=== PATIENT | female | born 1955 | race Caucasian/White ===

== ENCOUNTER 2017-01-26 08:02 | Emergency (ER) | payer OTHER ==
[~2017-01-26] VITALS: Ht 157.5 cm; Wt 61.7 kg
[2017-01-26] MEDS ORDERED: XANAX0.5 MG PO (09:02)
[2017-01-26] MEDS ORDERED: CULTURELLE1 CAP PO (09:03)
[2017-01-26] MEDS ORDERED: FISH OIL1 GM PO (09:03)
[2017-01-26] MEDS ORDERED: FLONASE16 GM NASBOTH (09:04)
[2017-01-26] MEDS ORDERED: GENICIN500 MG PO (09:04)
[2017-01-26] MEDS ORDERED: INVOKANA100 MG PO (09:05)
[2017-01-26] MEDS ORDERED: ATIVAN0.5 MG PO (09:06)
[2017-01-26] MEDS ORDERED: THERA M PLUS T1 EACH PO (09:07)
[2017-01-26] MEDS ORDERED: GLUCOPHAGE1000 MG PO (09:07)
[2017-01-26] MEDS ORDERED: SINGULAIR10 MG PO (09:07)
[2017-01-26] MEDS ORDERED: PRILOSEC40 MG PO (09:08)
[2017-01-26] MEDS ORDERED: PROAIR HFA8.5 GM INH (09:10)
[2017-01-26] MEDS ORDERED: CRESTOR20 MG PO (09:11)
[2017-01-26] MEDS ORDERED: ZOLOFT100 MG PO (09:12)
== END 2017-01-26 10:20 | disposition short-term general hospital (02) ==
LOC: ER 08:02
DX: R07.89 Other chest pain (principal); R42 Dizziness and giddiness; K21.9 Gastro-esophageal reflux disease without esophagitis; I10 Essential (primary) hypertension; F32.9 Major depressive disorder, single episode, unspecified; E78.5 Hyperlipidemia, unspecified; E11.9 Type 2 diabetes mellitus without complications; Z85.59 Personal history of malignant neoplasm of other urinary tract organ; Z87.891 Personal history of nicotine dependence; Z88.1 Allergy status to other antibiotic agents; Z79.84 Long term (current) use of oral hypoglycemic drugs; Z79.899 Other long term (current) drug therapy; Z90.710 Acquired absence of both cervix and uterus
CPT/HCPCS: A9150; A9270